=== PATIENT | female | born 1970 | race Caucasian/White ===

== ENCOUNTER 2016-09-23 21:19 | Emergency (ER) | payer OTHER ==
[~2016-09-23] VITALS: Ht 160 cm; Wt 73.5 kg
--- NOTE | 2016-09-23 21:23 | NUR ---
EKG performed at by Farhana. Physician given copy of EKG for review.
--- NOTE | 2016-09-23 21:25 | NUR ---
# 18 gauge angiocath placed to RT/LT AC. Use of asceptic technique. Opsite placed over site. Blood return noted. Blood for lab drawn from site. Flushed with 10 cc of normal saline. No evidence of infiltration noted. Patient tolerated well.
--- NOTE | 2016-09-23 21:29 | NUR ---
Pt in rm 2 with c/o rapid HR. Dr Gomez aware.
[2016-09-23 21:31] VITALS: BP 78/42; PULSE 201; RESP 16; TEMP 97.8; O2SAT 95
--- NOTE | 2016-09-23 21:35 | NUR ---
Placed in room 2 . Placed on cardiac care nurse, blood pressure machine and pulse oximeter. To gown for exam. Side rails up. EKG initiated stat. MD at bedside
--- NOTE | 2016-09-23 21:36 | NUR ---
ER Dr. Gomez at bedside examining patient and discussing plan of care.
[2016-09-23 21:40] LABS: HEMATOCRIT 40.9 % (36-48); HEMOGLOBIN 13.6 g/dL (12.0-16.0); MEAN CORPUSCULAR HEMOGLOBIN 29 pg (27-31); MEAN CORPUSCULAR HGB CONC 33 % (32-36); MEAN CORPUSCULAR VOLUME 86 fL (79.0-98.0); PLATELET COUNT (AUTO) 316 K/uL (130-430); RED BLOOD CELL COUNT(AUTO) 4.78 MIL/uL (4.2-6.2); RED CELL DISTRIBUTION WIDTH 12.4 % (9.0-15.0); WHITE BLOOD COUNT (AUTO) 11.3 K/uL (4.8-10.8)
[2016-09-23] MEDS ORDERED: ASPIRIN 81 MG TAB.CHEW PO ONE (21:45)
[2016-09-23 21:49] LABS: CALCIUM 8.5 mg/dL (8.4-11.0); CREATININE 1.3 mg/dL (0.55-1.30); POTASSIUM 3.3 mmol/L (3.5-5.1)
[2016-09-23 21:53] LABS: ALBUMIN 3.8 g/dL (3.4-4.8); TOTAL BILIRUBIN 0.3 mg/dL (0.0-1.0); TOTAL PROTEIN, SERUM 7.7 g/dL (6.4-8.3)
[2016-09-23 22:25] LABS: BASOPHILS % (MANUAL) 0 % (0-2); EOSINOPHILS % (MANUAL) 5 % (0-7); LYMPHOCYTES % (MANUAL) 54 % (20-46); MONOCYTES % (MANUAL) 3 % (0-11)
[2016-09-23 23:00] VITALS: BP 111/65; PULSE 89; RESP 16; TEMP 97.8; O2SAT 95
--- NOTE | 2016-09-23 23:00 | NUR ---
Patient given written and verbal discharge instructions and verbalizes understanding. ER MD discussed with patient the results and treatment provided. Given copies of tests performed in ER. Patient in stable condition. ID arm band removed. IV catheter removed intact and dressing applied, no active bleeding. No Rx given. Patient educated on pain management and to follow up with PMD. Pain Scale 0/10. Opportunity for questions provided and answered.
[2016-09-23] MEDS ORDERED: NACL 0.9% 1,000 ML IV ONE (23:15)
== END 2016-09-23 23:00 | disposition home or self-care (01) ==
LOC: SED 21:19
DX: I47.1 Supraventricular tachycardia (principal); Z88.5 Allergy status to narcotic agent; Z90.710 Acquired absence of both cervix and uterus
CPT/HCPCS: 36415; 71010; 80053; 80061; 82550-TC; 83880; 84484; 85007; 85027; 85379; 85610-TC; 85730-TC; 93005; 96360; 99285; J7030